=== PATIENT | female | born 1955 | race Caucasian/White ===

== ENCOUNTER 2021-03-13 22:06 | Emergency (ER) | payer OTHER ==
[~2021-03-13] VITALS: Ht 157.5 cm; Wt 59.0 kg
[2021-03-13] MEDS ORDERED: SYNTHROID112 MC1 PO (22:28)
[2021-03-13] MEDS ORDERED: TOPROL XL25 MG PO (22:28)
[2021-03-13] MEDS ORDERED: COMPOUNDED HORMONE (22:29)
[2021-03-14 00:17] LABS: HEMOGLOBIN 13.7 gm/dL (12.0-15.0); RBC 4.22 mil/uL (4.20-5.00); WBC 7.6 thou/uL (4.0-11.0)
[2021-03-14 00:18] LABS: EOSINOPHILS 2.9 % (0.0-3.0); HEMATOCRIT 41.2 % (37.0-47.0); LYMPHOCYTES 25.7 % (24.0-44.0); MCH 32.4 pg (26.0-34.0); MCHC 33.2 g/dL (28.0-37.0); MCV 97.5 fL (80.0-100.0); MONOCYTES 8.4 % (1.0-8.0); PLATELET COUNT 292 thou/uL (150-400); POLYS 61.9 % (36.0-66.0); RDW 12.7 % (10.5-14.5)
[2021-03-14 00:19] LABS: ABSOLUTE NEUTROPHILS 4.7 thou/uL (1.4-8.2); BASOPHILS 1.1 % (0.0-2.0)
[2021-03-14 00:30] LABS: POTASSIUM 4.1 mmol/L (3.5-5.1)
[2021-03-14 00:31] LABS: ALBUMIN 3.7 g/dL (3.4-5.0); CREATININE 0.6 mg/dL (0.6-1.0); TOTAL BILIRUBIN 0.2 mg/dL (0.2-1.0); TOTAL PROTEIN 7.9 g/dL (6.4-8.2)
[2021-03-14 01:22] VITALS: BP 137/83
== END 2021-03-14 01:23 | disposition home or self-care (01) ==
LOC: ER 22:06
PROVIDERS: Emergency Medicine
DX: I10 Essential (primary) hypertension (principal); Z79.899 Other long term (current) drug therapy

== ENCOUNTER 2021-06-02 05:25 | Emergency (ER) | payer OTHER ==
[~2021-06-02] VITALS: Ht 157.5 cm; Wt 59.0 kg
[~2021-06-02 05:25] MED LIST: COMPOUNDED HORMONE; SYNTHROID112 MC1 PO; TOPROL XL25 MG PO
[2021-06-02] MEDS ORDERED: LISINOPRIL10 MG PO (05:37)
[2021-06-02 07:30] VITALS: BP 170/68
== END 2021-06-02 07:30 | disposition home or self-care (01) ==
LOC: ER 05:25
DX: M79.605 Pain in left leg (principal); I10 Essential (primary) hypertension; Z79.899 Other long term (current) drug therapy